=== PATIENT | male | born 2000 | race Hispanic/Latino ===

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

== ENCOUNTER 2021-02-03 17:00 | Emergency (ER) | payer OTHER, SELFPAY ==
[2021-02-04 07:49] LABS: SARS-CoV-2 PCR by NAA DETECTED (NotDetected)
== END 2021-02-03 17:40 | disposition home or self-care (01) ==
LOC: NAV ERS 17:00
DX: U07.1 COVID-19 (principal)
CPT/HCPCS: 99283; U0003; U0005

== ENCOUNTER 2022-02-11 19:43 | Emergency (ER) | payer SELFPAY ==
[2022-02-11] MEDS ORDERED: Ibuprofen 200 MG TAB ONE (20:09)
[2022-02-11 20:26] LABS: #Basophils 0.1 thou/uL (0.0-0.2); #Eosinphils 0.1 thou/uL (0.0-0.7); #Lymphocytes 2.2 thou/uL (1.20-3.40); #Monocytes 0.7 thou/uL (0.11-0.59); #Neutrophils 6.1 thou/uL (1.40-6.50); %Basophils 0.6 % (0.0-1.0); %Eosinophils 1.6 % (0.0-10.0); %Lymphocytes 23.8 % (28.0-48.0); %Monocytes 7.4 % (0.0-4.0); %Neutrophils 66.6 % (31.0-61.0); Hemoglobin 14.3 g/dL (14.0-18.0); Mean Corpuscular HGB CONC 31.2 g/dL (32.0-36.0); Mean Corpuscular Hemoglobin 30.2 pg (25.0-35.0); Mean Corpuscular Volume 96.5 fL (78.0-98.0); Mean Platelet Volume 9.4 fL (7.4-10.4); Platelet Count 257 thou/uL (130-400); RBC Distribution Width 12.5 % (11.5-14.5); Red Blood Cell (RBC) Count 4.73 mill/uL (4.00-5.20); White Blood Cell (WBC) Count 9.2 thou/uL (4.8-10.8)
[2022-02-11 20:41] LABS: ALT (SGPT) 33 U/L (8-55); AST (SGOT) 17 U/L (5-34); Albumin 4.3 g/dL (3.5-5.0); Alkaline Phosphatase 59 U/L (50-130); Anion Gap 15 mmol/L (10-20); BUN (Urea Nitrogen) 11 mg/dL (8.9-20.6); Bilirubin, Total 0.4 mg/dL (0.2-1.2); Calc. Creatinine Clearance 0 mL/min (70-130); Calcium 9.7 mg/dL (7.8-10.44); Carbon Dioxide 25 mmol/L (22-29); Chloride 104 mmol/L (98-107); Estimated GFR 118; Globulin 2.7 g/dL (2.4-3.5); Glucose 103 mg/dL (70-105); Potassium 3.7 mmol/L (3.5-5.1); Sodium 140 mmol/L (136-145)
== END 2022-02-11 21:00 | disposition home or self-care (01) ==
LOC: NAV ERS 19:43
DX: R07.81 Pleurodynia (principal)
CPT/HCPCS: 71046; 80053; 85025; 93005

== ENCOUNTER 2022-06-08 04:35 | Emergency (ER) | payer SELFPAY ==
[2022-06-08] MEDS ORDERED: Ondansetron ODT 4 MG TAB ONE (04:48)
== END 2022-06-08 05:25 | disposition home or self-care (01) ==
LOC: NAV ERS 04:35
DX: R11.0 Nausea (principal)
CPT/HCPCS: 99283; Q0162

== ENCOUNTER 2022-06-11 17:10 | Emergency (ER) | payer SELFPAY | END 2022-06-11 17:30 | disposition home or self-care (01) | LOC: NAV ERS 17:10 | DX: K52.9 Noninfective gastroenteritis and colitis, unspecified (principal); F17.210 Nicotine dependence, cigarettes, uncomplicated | CPT/HCPCS: 99283 ==

== ENCOUNTER 2022-08-19 13:00 | Emergency (ER) | payer SELFPAY | END 2022-08-19 13:59 | disposition home or self-care (01) | LOC: NAV ERS 13:00 | DX: J06.9 Acute upper respiratory infection, unspecified (principal); F17.210 Nicotine dependence, cigarettes, uncomplicated | CPT/HCPCS: 99283 ==

== ENCOUNTER 2023-11-29 15:45 | Emergency (ER) | payer SELFPAY | END 2023-11-29 17:04 | disposition home or self-care (01) | LOC: NAV ERS 15:45 | DX: J45.998 Other asthma (principal); K52.9 Noninfective gastroenteritis and colitis, unspecified; F17.210 Nicotine dependence, cigarettes, uncomplicated | CPT/HCPCS: 71046; 94664 ==